=== PATIENT | female | born 1950 | race Caucasian/White ===

== ENCOUNTER 2023-04-07 15:20 | Emergency (ER) | payer MEDICAID ==
[~2023-04-07] VITALS: Ht 162.6 cm; Wt 88.5 kg
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
--- NOTE | 2023-04-07 16:02 | NUR ---
TO ER BED 16, NO CHANGE IN CONDITION
[2023-04-07] MEDS ORDERED: TDAP [DIPH/PERTUSSIS/TET] 0.5 ML VIAL IM ONE ×2 (16:30→16:40)
[2023-04-07] MEDS ORDERED: AMOX/CLAVULANATE 875 MG TABLET PO ONE (16:30)
[2023-04-07] MEDS ORDERED: AMOX/CLAVULANATE 875 MG TABLET ONE (16:40)
[2023-04-07] MEDS ORDERED: AMOX-430 PO (16:54)
[2023-04-07 17:02] VITALS: BP 142/94
--- NOTE | 2023-04-07 17:02 | NUR ---
Patient discharged to home in stable condition. Written and verbal after care instructions given. Patient verbalizes understanding of instruction.
== END 2023-04-07 17:03 | disposition home or self-care (01) ==
LOC: ER 15:27
DX: S61.253A Open bite of left middle finger without damage to nail, initial encounter (principal); S61.255A Open bite of left ring finger without damage to nail, initial encounter; I10 Essential (primary) hypertension; E11.9 Type 2 diabetes mellitus without complications; W54.0XXA Bitten by dog, initial encounter; Y93.89 Activity, other specified; Y92.89 Other specified places as the place of occurrence of the external cause; Y99.8 Other external cause status
CPT/HCPCS: 90715